=== PATIENT | male | born 1945 | race Hispanic/Latino ===

== ENCOUNTER 2018-10-19 14:21 | Emergency (ER) | payer OTHER ==
--- OUTSIDE RECORDS SUMMARY | 2018-10-19 14:23 | XMS REPORT ---
:1945 [facility] Address [address] [place] [address] Dr. Tadeo [address] [place] [id number] Care Team Providers Name Role Phone Unavailable Unavailable Unavailable Problems This patient has no known problems. Allergies, Adverse Reactions, Alerts This patient has no known allergies or adverse reactions. Medications This patient has no known medications.
[2018-10-19 15:45] LABS: Absolute Lymphocytes (CBC) 0.5 K/uL (0.7-4.9); Absolute Monocytes 0.3 K/uL (0.1-1.3); Absolute Neutrophil 7.3 K/uL (1.8-8.0); Basophils % 0.1 % (0-1.3); Hematocrit 40.1 % (39.6-49.0); Lymphocytes % 5.7 % (15.3-44.8); MPV 8.3 fL (7.6-11.3); Monocytes % 3.6 % (3.3-12.3); RBC Red Blood Cell Count 4.78 M/uL (4.33-5.43)
[2018-10-19 16:02] LABS: Albumin 2.7 g/dL (3.4-5.0); Bilirubin Direct 0.4 mg/dL (0-0.2); Bilirubin Total 0.8 mg/dL (0.2-1.0); Potassium 4.2 mmol/L (3.5-5.1); Protein, Total 7.4 g/dL (6.4-8.2)
[2018-10-19 17:42] LABS: Blood Morphology Comment NOT SEEN (NOT SEEN); Platelet Estimate ADEQ; Urine White Blood Cell Casts OK
--- NOTE | 2018-10-19 18:02 | RAD REPORT ---
EXAM DESCRIPTION: CT - Abdomen Pelvis W Contrast - 10/19/2018 5:40 pm CLINICAL HISTORY: Abdominal pain. COMPARISON: None. TECHNIQUE: Computed axial tomography of the abdomen and pelvis was obtained. 100 cc Isovue-300 is ad ministered intravenously. Oral contrast was given. All CT scans are performed using dose optimization technique as appropriate and may include automated exposure control or mA/KV adjustment according to patient size. FINDINGS: The liver, spleen, pancreas, adrenals and left kidney appear unremarkable. Small right renal cyst. Ri ght renal cortical thinning likely secondary to prior inflammation. There is no evidence of diverticulitis Postsurgical changes involve the lumbar spine. 2.1 centimeter exostosis extends off of left ilium Lower thoracic descending aorta has an AP diameter 4.3 centimeters. Proximal abdominal aortic aneurys m has an AP diameter 4.6 centimeters. 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 The left lower lobe atelectasis Several ventral hernias contain fat. The hernia next measure up to 2 centimeters. IMPRESSION: Distal descending thoracic aortic aneurysm with an AP diameter 4.3 centimeters Proximal abdominal aortic aneurysm with an AP diameter 4.6 centimeters It appears that an lower abdominal aorto bi-iliac graft has been placed. 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
[2018-10-19] MEDS ORDERED: MORPHINE 2 MG/ML SYR ONE (18:14)
[2018-10-19] MEDS ORDERED: ONDANSETRON 4 MG/2 ML VIAL ONE (18:14)
--- NOTE | 2018-10-19 18:48 | ER ---
Nurse's Notes [facility] Name: Adenike Christy Age: 73 yrs Sex: Male : 1945 Arrival Date: 10/19/2018 Time: 14:29 Bed 13 Private MD: Diagnosis: Lower abdominal pain, unspecified Presentation: 10/19 14:19 Presenting complaint: EMS states: 73 yr. old from [facility]. C/o abdominal rb1 pain due to a hernia per pt. report. History of A-fib, COPD, CHF, and Hyperlipidemia. BP 130/82, P 72, R 18, 93% 3 L NC, which is normal for the pt. Transition of care: patient was received from another setting of care ([facility]. Onset of symptoms was October 18, 2018. Risk Assessment: Do you want to hurt yourself or someone else? Patient reports no desire to harm self or others. Initial Sepsis Screen: Does the patient meet any 2 criteria? No. Patient's initial sepsis screen is negative. Does the patient have a suspected source of infection? No. Patient's initial sepsis screen is negative. Care prior to arrival: Medication(s) given: Maalox. 14:19 Method Of Arrival: EMS: [facility] rb1 14:19 Acuity: RENEE 3 rb1 Triage Assessment: 14:19 General: Appears in no apparent distress. comfortable, Behavior is calm, cooperative. rb1 Pain: Complains of pain in left upper quadrant and left lower quadrant Pain currently is 5 out of 10 on a pain scale. Pain began Last night; hernia to the left abdomen per pt. report. Neuro: Level of Consciousness is awake, alert, obeys commands, Oriented to person, place, time, situation. Cardiovascular: Capillary refill < 3 seconds is brisk in bilateral fingers. Respiratory: Airway is patent Respiratory effort is even, unlabored, Respiratory pattern is regular, symmetrical. GI: No signs and/or symptoms were reported involving the gastrointestinal system. : No signs and/or symptoms were reported regarding the genitourinary system. Derm: Wound noted left upper arm Other: Per EMS report, pt. has a little hole that was bleeding due to the blood thinners, so they applied a pressure dressing. How the pt. received the wound is unknown. Historical: - Allergies: 14:19 No Known Allergies; rb1 - PMHx: 14:19 aortic aneurysm; Atrial Fib; CHF; COPD; CVA; Hyperlipidemia; Hypertension; rb1 - PSHx: 14:19 CABG; pacemaker/defib; Cholecystectomy; lower back sx x3; rb1 - Immunization history:: Adult Immunizations up to date. - Social history:: Smoking status: Patient/guardian denies using tobacco. - Ebola Screening: : Patient negative for fever greater than or equal to 101.5 degrees Fahrenheit, and additional compatible Ebola Virus Disease symptoms. Screenin:19 Abuse screen: Denies threats or abuse. Nutritional screening: No deficits noted. rb1 Tuberculosis screening: No symptoms or risk factors identified. Assessment: 14:19 GI: Bowel sounds present X 4 quads. Abd is soft Abdomen is tender to palpation in left rb1 upper quadrant and left lower quadrant. 15:19 Reassessment: Patient appears in no apparent distress at this time. No changes from rb1 previously documented assessment. 16:19 Reassessment: Patient appears in no apparent distress at this time. Patient and/or rb1 family updated on plan of care and expected duration. Pain level reassessed. Patient is alert, oriented x 3, equal unlabored respirations, skin warm/dry/pink. 17:19 Reassessment: Patient appears in no apparent distress at this time. No changes from rb1 previously documented assessment. 18:19 Reassessment: Patient appears in no apparent distress at this time. Patient and/or rb1 family updated on plan of care and expected duration. Pain level reassessed. Patient is alert, oriented x 3, equal unlabored respirations, skin warm/dry/pink. 19:24 Reassessment: Called kris to Shania at [facility]. Information from rb1 the SBAR was given. She will call for transportation and call us back with an update. All questions asked and answered. 20:27 Reassessment: Patient appears in no apparent distress at this time. Patient and/or jb4 family updated on plan of care and expected duration. Pain level reassessed. Patient is alert, oriented x 3, equal unlabored respirations, skin warm/dry/pink. 21:00 Reassessment: Patient appears in no apparent distress at this time. Patient and/or jb4 family updated on plan of care and expected duration. Pain level reassessed. Patient is alert, oriented x 3, equal unlabored respirations, skin warm/dry/pink. 22:00 Reassessment: Patient appears in no apparent distress at this time. Patient and/or jb4 family updated on plan of care and expected duration. Pain level reassessed. Patient is alert, oriented x 3, equal unlabored respirations, skin warm/dry/pink. 23:00 Reassessment: Patient appears in no apparent distress at this time. Patient and/or jb4 family updated on plan of care and expected duration. Pain level reassessed. Patient is alert, oriented x 3, equal unlabored respirations, skin warm/dry/pink. 10/20 00:00 Reassessment: Patient appears in no apparent distress at this time. Patient and/or jb4 family updated on plan of care and expected duration. Pain level reassessed. Patient is alert, oriented x 3, equal unlabored respirations, skin warm/dry/pink. 00:52 Reassessment: Patient appears in no apparent distress at this time. Patient and/or jb4 family updated on plan of care and expected duration. Pain level reassessed. Patient is alert, oriented x 3, equal unlabored respirations, skin warm/dry/pink. Pt transferred to [facility] stretcher for transport back to [facility]. IV dc'ed. pt transported on oxygen. Vital Signs: 10/19 14:19 BP 118 / 73; Pulse 78; Resp 20; Temp 98.2(O); Pulse Ox 94% on 3 lpm NC; Weight 96.62 kg rb1 (R); Height 5 ft. 10 in. (177.80 cm) (R); Pain 5/10; 15:19 BP 109 / 75; Pulse 74; Resp 19; Pulse Ox 97% on R/A; rb1 16:19 BP 117 / 88; Pulse 75; Resp 17; Pulse Ox 95% on 3 lpm NC; rb1 17:19 BP 117 / 92; Pulse 74; Resp 18; Pulse Ox 95% on R/A; rb1 18:19 BP 104 / 81; Pulse 77; Resp 20; Pulse Ox 96% on R/A; rb1 18:58 BP 119 / 81; Pulse 74; Resp 19; Pulse Ox 96% on 3 lpm NC; Pain 3/10; rb1 20:00 BP 121 / 87; Pulse 76; Resp 16; Pulse Ox 95% on 2 lpm NC; jb4 21:00 BP 109 / 78; Pulse 78; Resp 18; Pulse Ox 93% on 2 lpm NC; jb4 22:00 BP 111 / 68; Pulse 74; Resp 18; Pulse Ox 94% on 2 lpm NC; jb4 23:00 BP 116 / 83; Pulse 78; Resp 18; Pulse Ox 94% on 2 lpm NC; jb4 10/20 00:00 BP 119 / 79; Pulse 81; Resp 18; Pulse Ox 99% on 2 lpm NC; jb4 00:30 BP 121 / 82; Pulse 77; Resp 18; Pulse Ox 95% on 2 lpm NC; jb4 10/19 14:19 Body Mass Index 30.56 (96.62 kg, 177.80 cm) rb1 ED Course: 10/19 14:19 Arm band placed on right wrist. rb1 14:19 Patient has correct armband on for positive identification. Bed in low position. Call rb1 light in reach. Side rails up X2. Pulse ox on. NIBP on. 14:29 Patient arrived in ED. rb1 14:30 Rupert Mitchell PA is PHCP. [facility] 14:30 Beau Fishman MD is Attending Physician. jmm 14:40 Triage completed. rb1 15:20 Inserted saline lock: 22 gauge in right antecubital area, using aseptic technique. rb1 Blood collected. 15:45 Krystle Kenny, RN is Primary Nurse. rb1 17:[address] kw1 17:40 CT Abd/Pelvis - W/Contrast In Process Unspecified. EDMS 17:45 CT completed. Patient tolerated procedure well. Patient moved to CT via stretcher. Patient moved back from CT. 18:47 George Talley MD is Referral Physician. [facility] 19:30 Report given to CLARK Paz. CLARK Paz wants the pt. IV to remain in until transportation rb1 arrives. 10/20 00:30 No provider procedures requiring assistance completed. IV discontinued, intact, jb4 bleeding controlled, No redness/swelling at site. Administered Medications: 10/19 18:10 Drug: morphine 2 mg Route: IVP; Site: right antecubital; rb1 18:25 Follow up: Response: No adverse reaction; Pain is decreased rb1 18:10 Drug: Zofran 4 mg Route: IVP; Site: right antecubital; rb1 18:25 Follow up: Response: No adverse reaction; Nausea is decreased rb1 Outcome: 18:47 Discharge ordered by MD. naqvi 10/20 00:[address] jb4 Condition: stable Discharge instructions given to patient, jail, EMS, Instructed on discharge instructions, follow up and referral plans. Demonstrated understanding of instructions, follow-up care. 00:56 Patient left the ED. jb4 Signatures: Dispatcher [employer] EDMS Rupert Mitchell PA PA Erick Bowles Rebecca, RN RN rb1 Leon Busby, CLARK RN jb4 Alee Cheek kw1 Corrections: (The following items were deleted from the chart) 00:53 10/19 20:00 BP 121 / 87; Pulse 76bpm; Resp 16bpm; Pulse Ox 95% 3 lpm Nasal Cannula; jb4 10/20 00:53 10/19 21:00 BP 109 / 78; Pulse 78bpm; Resp 18bpm; Pulse Ox 93% 3 lpm Nasal Cannula; jb4 10/20 00:53 10/19 22:00 BP 111 / 68; Pulse 74bpm; Resp 18bpm; Pulse Ox 94% 3 lpm Nasal Cannula; jb4 10/20 00:53 10/19 23:00 BP 116 / 83; Pulse 78bpm; Resp 18bpm; Pulse Ox 94% 3 lpm Nasal Cannula; jb4 jb4
--- NOTE | 2018-10-19 18:48 | EDPHYS ---
Physician Documentation [facility] Name: Adenike Christy Age: 73 yrs Sex: Male : 1945 Arrival Date: 10/19/2018 Time: 14:29 Bed 13 Private MD: ED Physician Beau Fishman HPI: 10/19 14:52 This 73 yrs old Male presents to ER via EMS with complaints of Abdominal Pain. m 14:52 The patient presents with abdominal pain. Onset: The symptoms/episode began/occurred jm last night. The symptoms do not radiate. Associated signs and symptoms: Pertinent negatives: diarrhea, fever, vomiting. This is a 73 year old male with a history of aortic aneurysm, atrial fibrillation, COPD, CHF, COPD, CVA that presents to the ED with complaints of left sided abdominal pain he attributes to a hernia. Patient states he has had similar pain in the past and has consulted with a surgeon. Denies fever, denies vomiting, denies diarrhea. . Historical: - Allergies: 14:19 No Known Allergies; rb1 - PMHx: 14:19 aortic aneurysm; Atrial Fib; CHF; COPD; CVA; Hyperlipidemia; Hypertension; rb1 - PSHx: 14:19 CABG; pacemaker/defib; Cholecystectomy; lower back sx x3; rb1 - Immunization history:: Adult Immunizations up to date. - Social history:: Smoking status: Patient/guardian denies using tobacco. - Ebola Screening: : Patient negative for fever greater than or equal to 101.5 degrees Fahrenheit, and additional compatible Ebola Virus Disease symptoms. ROS: 14:52 Constitutional: Negative for fever, chills, and weight loss, Cardiovascular: Negative jmm for chest pain, palpitations, and edema, Respiratory: Negative for shortness of breath, cough, wheezing, and pleuritic chest pain. 14:52 Abdomen/GI: Positive for abdominal pain, Negative for nausea and vomiting, diarrhea. 14:52 All other systems are negative. Exam: 14:52 Constitutional: This is a well developed, well nourished patient who is awake, alert, jmm and in no acute distress. Head/Face: atraumatic. Eyes: EOMI, no conjunctival erythema appreciated ENT: Moist Mucus Membranes Neck: Trachea midline, Supple Chest/axilla: Normal chest wall appearance and motion. Cardiovascular: Regular rate and rhythm. No edema appreciated Respiratory: Normal respirations, no respiratory distress appreciated 14:52 Back: Normal ROM Skin: General appearance color normal MS/ Extremity: Moves all extremities, no obvious deformities appreciated, no edema noted to the lower extremities Neuro: Awake and alert, normal gait Psych: Behavior is normal, Mood is normal, Patient is cooperative and pleasant 14:52 Abdomen/GI: Inspection: distension, obese Bowel sounds: normal, Palpation: soft, mild abdominal tenderness, in the left lower quadrant, rebound tenderness, is not appreciated, voluntary guarding, is not appreciated, involuntary guarding, is not appreciated, Hernia: noted in the left lower quadrant, incarceration, is not appreciated, tenderness, that is mild. Vital Signs: 14:19 BP 118 / 73; Pulse 78; Resp 20; Temp 98.2(O); Pulse Ox 94% on 3 lpm NC; Weight 96.62 kg rb1 (R); Height 5 ft. 10 in. (177.80 cm) (R); Pain 5/10; 15:19 BP 109 / 75; Pulse 74; Resp 19; Pulse Ox 97% on R/A; rb1 16:19 BP 117 / 88; Pulse 75; Resp 17; Pulse Ox 95% on 3 lpm NC; rb1 17:19 BP 117 / 92; Pulse 74; Resp 18; Pulse Ox 95% on R/A; rb1 18:19 BP 104 / 81; Pulse 77; Resp 20; Pulse Ox 96% on R/A; rb1 18:58 BP 119 / 81; Pulse 74; Resp 19; Pulse Ox 96% on 3 lpm NC; Pain 3/10; rb1 20:00 BP 121 / 87; Pulse 76; Resp 16; Pulse Ox 95% on 2 lpm NC; jb4 21:00 BP 109 / 78; Pulse 78; Resp 18; Pulse Ox 93% on 2 lpm NC; jb4 22:00 BP 111 / 68; Pulse 74; Resp 18; Pulse Ox 94% on 2 lpm NC; jb4 23:00 BP 116 / 83; Pulse 78; Resp 18; Pulse Ox 94% on 2 lpm NC; jb4 10/20 00:00 BP 119 / 79; Pulse 81; Resp 18; Pulse Ox 99% on 2 lpm NC; jb4 00:30 BP 121 / 82; Pulse 77; Resp 18; Pulse Ox 95% on 2 lpm NC; jb4 10/19 14:19 Body Mass Index 30.56 (96.62 kg, 177.80 cm) rb1 MDM: 10/19 14:32 Patient medically screened. [facility] 18:42 Data reviewed: vital signs, nurses notes. Counseling: I had a detailed discussion with donya the patient and/or guardian regarding: the historical points, exam findings, and any diagnostic results supporting the discharge/admit diagnosis, lab results, radiology results, the need for outpatient follow up, to return to the emergency department if symptoms worsen or persist or if there are any questions or concerns that arise at home. Response to treatment: the patient's symptoms have markedly improved after treatment. ED course: CT report reviewed. Patient states having previous aortic surgery. Patient denies tearing pain. BP WNL. Symptoms appear most likely due to hernia which is not incarcerated or strangulated. patient advised to follow up with general surgery and otherwise given strict return precautions. . 10/19 14:37 Order name: Basic Metabolic Panel; Complete Time: 16:05 [facility] 10/19 14:37 Order name: CBC with Diff; Complete Time: 17:49 [facility] 10/19 14:37 Order name: Creatinine for Radiology; Complete Time: 16:05 [facility] 10/19 14:37 Order name: Hepatic Function; Complete Time: 16:05 [facility] 10/19 14:37 Order name: Lipase; Complete Time: 16:05 [facility] 10/19 14:37 Order name: Lactate; Complete Time: 16:05 [facility] 10/19 14:37 Order name: IV Saline Lock; Complete Time: 15:58 [facility] 10/19 14:37 Order name: Labs collected and sent; Complete Time: 15:59 [facility] 10/19 14:37 Order name: CT Abd/Pelvis - W/Contrast; Complete Time: 18:04 [facility] 10/19 14:37 Order name: Urine Dipstick-Ancillary (obtain specimen); Complete Time: 15:58 [facility] 10/19 15:51 Order name: CBC Smear Scan; Complete Time: 17:49 EDMS Administered Medications: 18:10 Drug: morphine 2 mg Route: IVP; Site: right antecubital; rb1 18:25 Follow up: Response: No adverse reaction; Pain is decreased rb1 18:10 Drug: Zofran 4 mg Route: IVP; Site: right antecubital; rb1 18:25 Follow up: Response: No adverse reaction; Nausea is decreased rb1 Disposition: 10/20 07:16 Co-signature as Attending Physician, Beau Fishman MD I agree with the assessment and alice plan of care. Disposition: 10/19/18 18:47 Discharged to Home. Impression: Lower abdominal pain, unspecified. - Condition is Stable. - Discharge Instructions: Abdominal Pain, Adult, Hernia, Adult. - Medication Reconciliation Form, Thank You Letter, Antibiotic Education, Prescription Opioid Use, SBAR form form. - Follow up: George Talley MD; When: 2 - 3 days; Reason: Recheck today's complaints, Continuance of care, Re-evaluation by your physician. Signatures: Dispatcher [employer] EDBeau Willis MD MD cha Mickail, Joel, PA PA jmm Barber, Rebecca, RN RN rb1 Leon Busby RN RN jb4 Corrections: (The following items were deleted from the chart) 10/19 18:48 18:47 10/19/2018 18:47 Discharged to Home. Impression: Lower abdominal pain, jmm unspecified. Condition is Stable. Forms are Medication Reconciliation Form, Thank You Letter, Antibiotic Education, Prescription Opioid Use. Follow up: Private Physician; When: 2 - 3 days; Reason: Recheck today's complaints, Continuance of care, Re-evaluation by your physician. [facility] 10/20 00:56 10/19 18:48 10/19/2018 18:47 Discharged to Home. Impression: Lower abdominal pain, jb4 unspecified. Condition is Stable. Discharge Instructions: Abdominal Pain, Adult, Hernia, Adult. Forms are Medication Reconciliation Form, Thank You Letter, Antibiotic Education, Prescription Opioid Use. Follow up: George Talley; When: 2 - 3 days; Reason: Recheck today's complaints, Continuance of care, Re-evaluation by your physician. [facility]
== END 2018-10-20 00:56 | disposition home or self-care (01) ==
LOC: ER 14:21
DX: R10.30 Lower abdominal pain, unspecified (principal); J44.9 Chronic obstructive pulmonary disease, unspecified; I48.91 Unspecified atrial fibrillation; I11.0 Hypertensive heart disease with heart failure; I50.9 Heart failure, unspecified; E78.5 Hyperlipidemia, unspecified; Z95.0 Presence of cardiac pacemaker; Z95.1 Presence of aortocoronary bypass graft; Z86.73 Personal history of transient ischemic attack (TIA), and cerebral infarction without residual deficits
CPT/HCPCS: 85025; 80048; 36415; 80076; 83605; 83690; 74177; 96375; 96374; 99285; Q9967; J2270; J2405